=== PATIENT | female | born 1995 | race Caucasian/White ===

== ENCOUNTER 2022-05-04 08:56 | Outpatient (CLI) | payer OTHER, SELFPAY ==
[2022-05-05 15:31] LABS: Strep B DNA Probe NEGATIVE (Negative)
== END 2022-05-04 08:57 | disposition home or self-care (01) ==
LOC: NFLDREF 08:56
PROVIDERS: Visit Provider Advanced Practice Midwife
DX: Z34.93 Encounter for supervision of normal pregnancy, unspecified, third trimester (principal); Z3A.36 36 weeks gestation of pregnancy
CPT/HCPCS: 87081; 87653

== ENCOUNTER 2022-05-25 15:04 | Outpatient (CLI) | payer OTHER, SELFPAY ==
[2022-05-25 15:16] VITALS: BP 120/73; PULSE 76; RESP 16; TEMP 36.8
[2022-05-25 15:17] VITALS: PULSE 85; O2SAT 98
--- NOTE | 2022-05-25 15:52 | PC.OBNST ---
NST Note NST Note Start: 05/25/22 14:37 Freq: ONCE Status: Active Protocol: Document 05/25/22 15:43 CLARKE (Rec: 05/25/22 15:44 CLARKE [id number]) NST Note 1 Para (# of births) 0 EDC 05/28/22 Patient Presented with Complaint(s) of Decreased movement Reactive Yes Appropriate for Gestational Age Yes PARISH Best RN Date 05/25/22 Reactive Yes Appropriate for Gestational Age Yes PARISH Coyne RN Date 05/25/22 OB NST charge Yes Complete NST Note via Write Note Yes The provider's electronic signature indicates the NST is reactive/appropriate for gestational age. *Note to provider: If an addendum is required, open the patient's chart and click on the note under the Nurse/Allied Health tab.
== END 2022-05-25 15:47 | disposition home or self-care (01) ==
LOC: OB OUT 15:04 → OB 15:05
PROVIDERS: Visit Provider Obstetrics & Gynecology
DX: Z34.03 Encounter for supervision of normal first pregnancy, third trimester (principal)
CPT/HCPCS: 59025; 99213

== ENCOUNTER 2022-05-31 06:41 | Outpatient (CLI) | payer OTHER, SELFPAY ==
[2022-05-31 07:02] VITALS: BP 110/73; PULSE 71
[2022-05-31 07:05] VITALS: RESP 16; TEMP 36.6
[2022-05-31 07:06] VITALS: PULSE 73; O2SAT 98
[2022-05-31] MEDS: MORPHINE 10 MG/ML inj IM (10:51)
[2022-05-31] MEDS: hydrOXYzine pamoate 25 MG CAPSULE 100 MG PO (10:52)
--- NOTE | 2022-05-31 11:33 | PC.OBNST ---
NST Note NST Note Start: 05/31/22 11:30 Freq: Status: Active Protocol: Document 05/31/22 11:30 CATHOLIC (Rec: 05/31/22 11:33 CATHOLIC [id number]) NST Note 1 Para (# of births) 0 EDC 05/23/22 Patient Presented with Complaint(s) of Contractions/cramping Reactive Yes Appropriate for Gestational Age Yes PARISH [place] Date 05/31/22 Reactive Yes Appropriate for Gestational Age Yes PARISH Zimmerman Date 05/31/22 OB NST charge Yes Complete NST Note via Write Note Yes The provider's electronic signature indicates the NST is reactive/appropriate for gestational age. *Note to provider: If an addendum is required, open the patient's chart and click on the note under the Nurse/Allied Health tab.
== END 2022-05-31 11:00 | disposition home or self-care (01) ==
LOC: OB CLI 06:41 → OB 06:54
PROVIDERS: Absent Provider Advanced Practice Midwife; Visit Provider Advanced Practice Midwife
DX: O47.1 False labor at or after 37 completed weeks of gestation (principal); Z3A.40 40 weeks gestation of pregnancy
CPT/HCPCS: 59025; 96372; A9270; J2270

== ENCOUNTER 2022-05-31 19:59 | Inpatient (IN) | payer OTHER, SELFPAY ==
[2022-05-31] VITALS (27 sets, daily range): BP systolic 90–140; BP diastolic 50–88; PULSE 64–128; TEMP 36.9–37.1; O2SAT 98–99; BMI 32.3
--- NOTE | 2022-05-31 20:50 | W.PM.LDBA ---
Subjective History of Present Illness Date Seen: 05/31/22 Narrative: Patient is being admitted to Labor and Delivery for active labor. She is a 27 year old at 40.3 weeks gestation. Her full history and physical was dictated by Simi Villalobos on . Please see this for details. Shannan was in to labor and delivery this morning. At that time she was cam but not making a lot of cervical change. She choose to take some Vistaril and go home to try to sleep. She came back this evening and was found to be 6cm at that time. She had cervical changed to 8cm with a feeling of pressure about an hour later. She was admitted at that time and requested and received an epidural. Blood Type: O positive ? GBS: Negative : Duane 1. 1st OB u/s: Anterior subchorionic hemorrhage measuring 1.6 x 0.7 x 0.6 cm; resolved 2. Rubella non-immune.? NEEDS PP vaccination 3. Anatomy scan EFW >97%.? Pt's mother had macrosomic infants, denies any complications OB - H&P: Exam Physical Exam: Vital signs: Pulse BP Pulse Ox 90 124/88 98 05/31/22 19:39 05/31/22 19:39 05/31/22 19:39 Constitutional: Constitutional: no acute distress Routine HEENT Exam: Head: Present normal inspection Routine Respiratory Exam: Respiratory: Present CTA bilaterally Routine Cardiovascular Exam: Cardiovascular: RRR Detailed Labor and Delivery Exam: Patient Gravid: yes Dilation (cm): 8 (per RN exam) Effacement (%): 100 Consistency: soft Tachysystole: No Contraction intensity: Moderate Fetus (Single): Heart Rate Baseline: 150 Monitor Accelerations: Present Monitor Decelerations: Early Roller Painter Variability: Moderate (11-25) (6-25) Routine Extremities Exam: Extremities: Present full ROM Routine Back/Spine/Pelvis Exam: Back/Spine: full ROM Routine Psychiatric Exam: Present normal affect and normal thought process OB - Problem Based A/P Additional Plan (1) : Status: Acute Plan at 40.3 weeks gestation? GBS negative? Uncomplicated ? PLAN:? 1. Candidate for analgesia of choice. Planning epidural.?? 2. Anticipate ? 3. Expectant management at this time.? 4. IV in place 5. Continuous monitoring per unit policy for epidural. Delivery/Labor/Induction Plan Plan: expectant management
[2022-05-31] MEDS: ROPIVACAINE 0.2% 100 ml 100 ML 12 MG EPIDURAL (21:01)
[2022-05-31] MEDS: LIDOCAINE 2% (PF) 5 ML VIAL EPIDURAL (21:04)
[2022-05-31 21:06] LABS: SARS PCR* Negative SARS-CoV-2 (Negative)
--- NOTE | 2022-05-31 21:10 | PM.ANBPRC ---
PFSH PFSH Social History Smoking Status: Never smoker Meds Home Medications and Allergies Home Medications Medication Instructions Recorded Confirmed Type ferrous sulfate 325 mg (65 mg 325 mg PO QDAY 04/06/22 05/31/22 History iron) tablet omega 4-dpb-ycf-fish oil 1,000 mg 1 cap PO QDAY 04/06/22 05/31/22 History (120 mg-180 mg) capsule (Fish Oil) prenat.vits,silvia,beu-tbyn-jqvsa 1 tab PO QDAY 04/06/22 05/31/22 History Allergies Allergy/AdvReac Type Severity Reaction Status Date / Time No Known Allergies Allergy Unverified 05/30/22 09:18 Results Labs Labs: Laboratory Results - last 24 hr 05/31/22 20:10 SARS-CoV-2 (PCR) Negative SARS-CoV-2 Vital Signs Vital Signs: Last Vital Signs Pulse 79 05/31/22 21:09 BP 117/67 05/31/22 21:09 Pulse Ox 99 05/31/22 21:03 Weight: 92.986 kg Height: 182.88 cm Anesthesia Procedures Epidural Insertion Patient Location: OB Start Time: 20:40 Stop Time: 21:40 Start Date: 05/31/22 Stop Date: 05/31/22 Reason for Block: primary anesthetic Patient Position: sitting Performed By: Alejandro Resendez Preanesthetic Checklist: IV checked, risks and benefits discussed, surgical consent, monitors and equipment checked, pre-op evaluation, timeout performed and anesthesia consent Prep: chlorhexidine gluconate Monitoring: blood pressure monitoring, continuous pulse oximetry and heart rate Approach: midline Vertebral Space: lumbar (1-5) Needle Type: Tuohy needle Injection Technique: continuous catheter (continuous catheter) Needle gauge: 17 Needle Length (cm): 10 cm Needle Insertion Depth (cm): 6 Catheter Gauge: 19 Catheter Type: multi-orifice Catheter at skin depth (cm): 12 Test Dose Result: negative and lidocaine 1.5% with epinephrine 1 to 200,000
[2022-05-31 21:23] LABS: Basophils Percent Auto 0.1 % (0.0-3.0); Eosinophils Percent Auto 0.4 % (0.0-7.0); Hematocrit 37.6 % (33.0-51.0); Hemoglobin* 12.7 gm/dL (12.0-16.0); Immature Granulocytes Abs Auto 0.04 K/uL (0.00-0.30); Lymphocytes Percent Auto 11.1 % (20-44); Mean Corpuscular HGB Conc 34 gm/dL (32-36); Mean Corpuscular Hemoglobin 31 pg (26-34); Mean Corpuscular Volume 91 fL (80-100); Neutrophils Percent Auto 83.1 % (42.0-72.0); Platelet Count* 289 K/uL (140-440); RDW Coefficient of Variation % 13.1 % (11.5-15.5); Red Blood Count 4.15 m/uL (4.00-5.20); White Blood Count* 15.98 K/uL (4.50-11.00)
[2022-05-31 21:30] LABS: Slide Review Reflex No
[2022-05-31] MEDS: LACTATED RINGERS 1000 ML 1,000 ML 125 ML IV (22:11)
[2022-06-01] VITALS (37 sets, daily range): BP systolic 106–135; BP diastolic 57–75; PULSE 67–99; RESP 14–16; TEMP 36.4–37.3; O2SAT 96–98
[2022-06-01] MEDS: ONDANSETRON 2 MG/ML inj 4 MG IV (02:21)
[2022-06-01] MEDS: ROPIVACAINE 0.2% 100 ml 100 ML 12 MG EPIDURAL (04:43)
[2022-06-01] MEDS: OXYTOCIN 30 unit/500 ML in NS 30 UNIT/500 ML BAG IVPB (05:40)
--- NOTE | 2022-06-01 06:48 | P.OBPRC_ITS ---
Procedure Delivery date: 06/01/22 Procedure Done: Global Intrapartal Events: Labor Augmentation Delivery augmentation: rupture of membranes and pitocin (very little in the last 15 min of pushing) Delivery monitor: external FHT and external uterine Route of delivery: Episiotomy description: None Laceration description: Perineal - 2nd Degree Delivery repair: Vicryl Estimated blood loss (mL): 150 Anesthesia type: Epidural Disposition: floor Narrative: Patient is a 27 year-old G1 now? P1 admitted on 05/31/22 at 40 Weeks, 3 Days gestation for active labor.? Cervical exam on admission was 6 cm/90 % effaced/-2 station with membranes intact in vertex presentation.? SROM occurred at 0142 with clear fluid.? ? ? Labor Analgesia:? epidural? ? ? Pitocin:? yes, small dose shortly before delivery? ? ? Labor onset:? 1929? ? ? Complete: 0? ? ? Pushing:? 0043, took one 30 minute break in pushing to labor down in the throne position. ? ? heart tones during second stage were: ?Category II. Baseline 140's with moderate variability and accelerations. She has some variable decelerations at the end of pushing ? ? At 0546 a viable? female delivered in vertex LIN presentation over intact perineum via spontaneous vaginal delivery.? Infant was placed on maternal abd omen.? Cord was clamped and cut after a 5+ minute delay.? Nose and mouth were bulb suctioned.? Infant weight pending.? 8 at 1 minute and 9 at 5 minutes.? Shoulder dystocia: no.? Nuchal cord: no.? ? ? Placenta delivered spontaneously and complete at 0618 with a 3 vessel cord.? ? ? Mother and were stable after delivery.? ? ? Lacerations:? 2nd degree, repaired with 3-0 vicryl.? Repair done by Dr. Elaine Augustine. ? ? Blood loss: 150 mL.? Blood loss measurement type: QBL? Sponge and needles counts are correct.? Infant Infant Gender: Female presentation: vertex Placental Delivery Description: Spontaneous Cord Description: 3 Vessels total score - 1 minute: 8 total score - 5 minute: 9 OB Vag Delivery Procedures Additional Procedures Laceration Repair: Yes
[2022-06-01] MEDS: IBUPROFEN 600 MG TABLET PO ×3 (09:06→22:20)
[2022-06-01] MEDS: DOCUSATE SODIUM 100 MG CAPSULE PO (09:06)
[2022-06-01] MEDS: ACETAMINOPHEN 500 MG TABLET 1000 MG PO ×2 (12:03→19:48)
[2022-06-02 01:50] VITALS: BP 115/58; PULSE 78; RESP 16; TEMP 36.4; O2SAT 98
[2022-06-02 04:20] VITALS: BP 119/77; PULSE 78; RESP 16; TEMP 36.5; O2SAT 98
[2022-06-02] MEDS: IBUPROFEN 600 MG TABLET PO ×2 (05:42→14:21)
[2022-06-02 06:57] LABS: Hemoglobin* 10.3 gm/dL (12.0-16.0)
[2022-06-02 08:14] VITALS: BP 134/77; PULSE 67; RESP 20; TEMP 36.4; O2SAT 98
[2022-06-02] MEDS: DOCUSATE SODIUM 100 MG CAPSULE PO (08:28)
[2022-06-02] MEDS: ACETAMINOPHEN 500 MG TABLET 1000 MG PO (08:28)
--- NOTE | 2022-06-02 08:39 | PM.OBDSVD1 ---
DS: Providers Provider Date Seen: 06/02/22 Date of admission: 05/31/22 19:59 Primary care physician: Not a Local Provider Admitting Clinician: Christina Diego CNM Attending Physician on discharge: Christina Diego CNM Date of Discharge: 06/02/22 Exam Const: Vital Signs, click to edit/add: Vital Signs - 24 hr 06/01/22 12:00 06/01/22 16:15 06/01/22 19:55 Temperature 98.9 F 97.6 F 97.7 F Pulse Rate [Blood Pressure Cuff] 78 87 82 Respiratory Rate 16 14 16 Blood Pressure [Ri ght Arm] 106/71 117/75 127/74 Pulse Oximetry 96 96 98 Oxygen Delivery Me thod Room Air Room Air Room Air 06/02/22 01:50 06/02/22 04:20 06/02/22 08:14 Temperature 97.5 F L 97.7 F 97.5 F L Pulse Rate [Blood Pressure Cuff] 78 78 67 Respiratory Rate 16 16 20 Blood Pressure [Ri ght Arm] 115/58 L 119/77 134/77 Pulse Oximetry 98 98 98 Oxygen Delivery Me thod Room Air Room Air Room Air Documenting provider has reviewed patient's vital signs: yes Common normals: no apparent distress, average body habitus, oriented x3, no limitations, healthy appearing, alert and well nourished General appearance: cooperative, comfortable and well kempt HENMT: Common normals: head/scalp atraumatic, hearing grossly normal bilaterally, external ears normal and external nose normal Head and scalp: normal to inspection and atraumatic Face and sinus: normal facial exam Nose: external nose normal External ear: external ears normal Eye: General eye: normal appearance of both eyes Neck & C-Spine: Common normals: full ROM, supple and no JVD General: normal visual inspection and trachea midline Resp: Common normals: normal respiratory effort, no retractions, no use of accessory muscles and clear to auscultation bilaterally Auscultation: clear to auscultation bilaterally Cardio: Common normals: no JVD, regular rate, regular rhythm, S1 normal heart sound, S2 normal heart sound, no gallops, no clicks, no murmurs and no rub Rate: regular rate Rhythm: regular rhythm Heart sounds: S1 normal and S2 normal GI: Common normals: soft to palpation and non-tender Palpation: soft : Uterus: U/2 Lochia: small Extremity: Common normals: full ROM Neuro: Common normals: oriented x3 Sensorium/orientation: alert Psych: Common normals: mental status grossly normal, thought process normal and cooperative Appearance: well kempt Thought process: normal thought process OB - DS: Summary Hospital Course Hospital Course: Day 1:? Vaginal Delivery at 40 and 4/7 weeks.? The patient is a 27 year old G 1 now P 1 that was admitted to the Center on 05/31/22 for active labor. She had an uncomplicated vaginal delivery. She pushed for over 5 hours and had a 2nd degree laceration. She delivered a viable female . She is breast feeding and feels that it is going well. Pain is well controlled with current medications.? She has no new complaints.? Urinary output is adequate and she is voiding without difficulty.? Has a good appetite, is tolerating a general diet, is passing flatus, and has not had a bowel movement.? Has?small amount of rubra lochia.? She is ambulating well.? the patient has done well. Discharge Criteria? Patient has no complaints? No active bleeding?? Doing well? Discharge? Discharge Medication Orders:? No New Medication Orders? Disposition? She is requesting discharge home.? Peripartum Data Infant delivery method: Vaginal Laceration description: Perineal - 2nd Degree Episiotomy description: None complications: none Rhodelia Gender: Female Infant Discharge Plan: Home Status at Discharge Functional status at discharge: independent ambulation Overall status at discharge: patient is progressing back to baseline Time Spent with Patient Time attestation: Total time spent providing and/or coordinating discharge services: Discharge Plan Discharge Disposition: Home, Self-Care Date of Admission: 05/31/22 19:59 Primary Care Provider: Provider,Not a Local Condition: Stable Anticipated Discharge Date/Time: 06/03/22 10:00 Discharge Medications: New docusate sodium 100 mg Capsule 100 mg PO DAILY Qty: 90 0RF ibuprofen 600 mg Tablet 600 mg PO Q6H PRNQty: 60 0RF Continued prenat.vits,silvia,omh-uzzv-exsjx Tablet 1 tab PO QDAY ferrous sulfate 325 mg (65 mg iron) tablet 325 mg PO QDAY omega 9-qhb-gsl-fish oil [Fish Oil] 1,000 mg (120 mg-180 mg) capsule 1 cap PO QDAY Discharge Orders: Discharge Order (Routine); Ordered 06/02/22 Ordered By: Christina Diego Patient Education: Bleeding (DC), Vaginal Delivery (DC) Activity Restrictions/Additional Instructions: Discharge instructions were reviewed with the patient including signs and symptoms of infection and home going medications. Lifting Restrictions: None Nothing vaginally for 6 weeks: no tampons or intercourse. No exercise restrictions. Off Work or School for 6 weeks. Symptoms to report to doctor: -Bleeding that saturates more than one pad per hour ?-Passing clots larger than the size of a golf ball ?-Pain not relieved by prescribed medication ?-Fever above 100.4 degrees Fahrenheit ?-A foul vaginal odor ?-Difficulty in emotions, mood and functions ?-Thoughts of hurting yourself and/or ?-Painful, reddened area in your breast ?-Any drainage, redness or tenderness in your IV/epidural site ?-Severe headache that doesn't improve after taking medications ?-Changes in vision, including temporary loss of vision, blurred vision, and/or light sensitivity ?-Upper abdominal pain (usually under ribs on the right side) ?-Decrease in urination or painful, frequent urinating ?-Chest pain ?-Shortness of breath ?-Tenderness or pain with redness and/swelling in the calf(s) of your leg Optional 2 week visit with a Certified Nurse Fruit Picker Machine Operator: Review contraceptive options, screen for anxiety and depression, review concerns for infant care/feeding. Six week visit for annual physical exam. consultation services are available to all mothers and babies for the first year after delivery.? To make an appointment, please call [phone]. Activity Level: No Restrictions and Activity as Tolerated Discharge Diet: Regular Follow Up Appointments: [facility] [Provider Group] Christina Diego CNM [Certified Nurse Fruit Picker Machine Operator] - Provider,Not a Local [Primary Care Provider] - Forms: bSafe Info Instructions
[2022-06-02] MEDS: MEASLES,MUMPS,RUBELLA VACC/PF 1 DOSE INJ 1 EACH SUBCUT (14:22)
== END 2022-06-02 15:00 | disposition home or self-care (01) | DRG 807 ==
LOC: OB CLI 19:59 → OB 19:59
PROVIDERS: Admitting Provider Advanced Practice Midwife; Visit Provider Advanced Practice Midwife
DX: O70.1 Second degree perineal laceration during delivery (principal); Z37.0 Single live birth; Z3A.40 40 weeks gestation of pregnancy
CPT/HCPCS: 01967; 36415; 85018; 85025; 86850; 86900; 86901; 87635; A9270; J2405; J2795; J7120

== ENCOUNTER 2022-09-07 10:00 | Outpatient (RCR) | payer OTHER, SELFPAY | END 2023-02-05 12:37 | disposition home or self-care (01) | PROVIDERS: Visit Provider Advanced Practice Midwife | DX: N81.89 Other female genital prolapse (principal); R53.1 Weakness; R27.8 Other lack of coordination; R26.89 Other abnormalities of gait and mobility; Z51.89 Encounter for other specified aftercare | CPT/HCPCS: 97110; 97140; 97161; 97535 ==

== ENCOUNTER 2022-11-02 10:47 | Outpatient (CLI) | payer OTHER, SELFPAY | END 2022-11-02 10:48 | disposition home or self-care (01) | LOC: LKVREF 10:51 | PROVIDERS: Visit Provider Advanced Practice Midwife | DX: O20.9 Hemorrhage in early pregnancy, unspecified (principal) | CPT/HCPCS: 84702 ==

== ENCOUNTER 2022-11-05 08:15 | Outpatient (CLI) | payer OTHER, SELFPAY | END 2022-11-05 08:16 | disposition home or self-care (01) | LOC: LKVREF 16:20 | PROVIDERS: Visit Provider Advanced Practice Midwife | DX: O26.851 Spotting complicating pregnancy, first trimester (principal) | CPT/HCPCS: 84702 ==

== ENCOUNTER 2022-11-22 12:45 | Outpatient (CLI) | payer OTHER, SELFPAY ==
--- NOTE | 2022-11-22 13:00 | CRLHL7_ITS ---
For Patients: As a result of the Cures Act, medical imaging exams and procedure reports are released immediately into your electronic medical record. You may view this report before your referring provider. If you have questions, please contact your health care provider. INDICATION: First trimester scan, establish dates. COMPARISON: None. TECHNIQUE: Real-time guzman-scale imaging of the pelvis was performed. FINDINGS: Sonographic imaging demonstrates a single living intrauterine gestation. The embryo demonstrates a regular cardiac rate measuring 174 beats per minute. The embryo`s crown-rump length measurement of 2.2 cm corresponds to a gestational age of 9 weeks 0 days with a sonographic due date of 06/27/2023. There is a normal-appearing yolk sac. There are no gross abnormalities noted within the embryo at this early state of development. The gestational sac has a normal appearance. There is a left fundal perigestational hemorrhage measuring 2.2 x 0.6 x 0.7 cm. The amount of fluid within the sac appears appropriate for gestational age. The cervix is closed. The myometrium appears normal. The ovaries are of normal size. Corpus luteal cyst right ovary. There are no suspicious fluid collections noted in the cul-de-sac. IMPRESSION: Single living intrauterine with sonographic gestational age 9 weeks 0 days and sonographic due date of 06/27/2023. Left fundal subchorionic hemorrhage measuring 2.2 x 0.6 x 0.7 cm. Dictated by Alejandro Murillo MD @ 11/22/2022 2:39:09 PM (Electronically Signed)
== END 2022-11-22 12:46 | disposition home or self-care (01) ==
LOC: US 12:45
PROVIDERS: PCP Advanced Practice Midwife; Visit Provider Advanced Practice Midwife
DX: Z34.91 Encounter for supervision of normal pregnancy, unspecified, first trimester (principal); Z3A.09 9 weeks gestation of pregnancy
CPT/HCPCS: 76817; 86592; 86703; 86762; 86787; 86803; 86850; 86900; 86901; 87086; 87340

== ENCOUNTER 2022-11-22 14:29 | Outpatient (CLI) | payer OTHER, SELFPAY ==
[2022-11-22 18:01] LABS: Hepatitis B Surface Antigen* Negative (Negative)
[2022-11-22 18:19] LABS: Hepatitis C Virus Antibody* Negative (Negative)
[2022-11-22 18:22] LABS: HIV 1/2/P24 Combo Screen* Negative (Negative)
[2022-11-24 23:20] LABS: Rubella Antibody IgG 13.2 IU/mL
[2022-11-25 01:21] LABS: Rapid Plasma Reagin (RPR) Non Reactive (Non Reactive)
== END 2022-11-22 14:30 | disposition home or self-care (01) ==
PROVIDERS: PCP Advanced Practice Midwife; Visit Provider Physician Assistant
DX: Z34.91 Encounter for supervision of normal pregnancy, unspecified, first trimester (principal); Z3A.09 9 weeks gestation of pregnancy
CPT/HCPCS: 86592; 86703; 86762; 86787; 86803; 86850; 86900; 86901; 87086; 87340; 87491; 87591

== ENCOUNTER 2023-02-07 08:05 | Outpatient (CLI) | payer OTHER, SELFPAY ==
--- NOTE | 2023-02-07 08:15 | CRLHL7_ITS ---
For Patients: As a result of the Century Cures Act, medical imaging exams and procedure reports are released immediately into your electronic medical record. You may view this report before your referring provider. If you have questions, please contact your health care provider. INDICATION: Evaluate anatomy. COMPARISON: 11/22/2022 TECHNIQUE: Real time guzman scale imaging of the fetus was performed as well as color Doppler analysis of the umbilical vessels. FINDINGS: Sonographic imaging demonstrates a single living intrauterine gestation. Fetus demonstrates a regular cardiac rate of 161 beats per minute. Fetus has a vertex position. The placenta lies anteriorly without evidence of placenta previa. The edge of the placenta is located 8.7 cm from the internal cervical os. Amniotic fluid volume appears normal. Single deepest vertical pocket: 4.5 cm. The cervix is closed and measures 3.6 cm in length. The composite ultrasound gestational age is calculated at 20 weeks 4 days with an estimated sonographic due date of 06/23/2023. The estimated weight is 376 grams which lies at the 86th %. The following biometric measurements were obtained: Biparietal diameter: 4.7 cm/20 weeks 2 days 61st% Head circumference: 17.5 cm/20 weeks 0 days 42nd% Abdominal circumference: 16.2 cm/21 weeks 2 days 83rd% Femur length: 3.3 cm/20 weeks 3 days 57th% The HC/AC ratio measures: 1.08 range (1.07-1.25) On anatomic survey, there is a normal appearance of the cerebral ventricles, cavum septi pellucidi, cisterna magna and cerebellum. The nose, lips, and facial profile are not well-visualized due to position. The cervical, thoracic and lumbar spine are well visualized and appear normal. There is a normal four-chamber heart view and the left and right ventricular outflow tracts appear normal. The diaphragm and stomach appear normal. The kidneys and bladder also appear normal. There is a normal three-vessel cord and cord insertion site. The four extremities appear normal. IMPRESSION: Concordance of clinical and sonographic dating. Incomplete visualization of the face, profile and nose/lips due to position. Remainder of the anatomic survey is normal. Short-term follow-up recommended. Dictated by Alejandro Murillo MD @ 02/07/2023 11:13:01 AM (Electronically Signed)
== END 2023-02-07 08:06 | disposition home or self-care (01) ==
LOC: US 08:07
PROVIDERS: PCP Advanced Practice Midwife; Visit Provider Advanced Practice Midwife
DX: Z34.92 Encounter for supervision of normal pregnancy, unspecified, second trimester (principal); Z3A.20 20 weeks gestation of pregnancy
CPT/HCPCS: 76805

== ENCOUNTER 2023-04-04 08:38 | Outpatient (CLI) | payer OTHER, SELFPAY | END 2023-04-04 08:39 | disposition home or self-care (01) | LOC: NFLDREF 04-05 17:34 | PROVIDERS: Visit Provider Advanced Practice Midwife | DX: Z34.90 Encounter for supervision of normal pregnancy, unspecified, unspecified trimester (principal) | CPT/HCPCS: 86592 ==

== ENCOUNTER 2023-05-30 09:23 | Outpatient (CLI) | payer OTHER, SELFPAY ==
[2023-05-31 08:10] LABS: Strep B DNA Probe NEGATIVE (Negative)
[2023-05-31 08:47] LABS: Strep B Pen/Amox Allergy No
== END 2023-05-30 09:24 | disposition home or self-care (01) ==
LOC: NFLDREF 09:23
PROVIDERS: Visit Provider Advanced Practice Midwife
DX: Z34.93 Encounter for supervision of normal pregnancy, unspecified, third trimester (principal)
CPT/HCPCS: 87081; 87653

== ENCOUNTER 2023-07-04 06:58 | Inpatient (IN) | payer OTHER, SELFPAY ==
[2023-07-04] VITALS (43 sets, daily range): BP systolic 91–155; BP diastolic 50–75; PULSE 76–223; TEMP 36.6–37.5; O2SAT 98–100; BMI 30.8
--- NOTE | 2023-07-04 07:53 | P.LDBA_ITS ---
Subjective History of Present Illness Narrative: Patient is being admitted to Labor and Delivery for post dates induction of labor. She is a 28 year old at 41.0 weeks gestation. Her full history and physical was done 06/06/23 by Margaret Machado CNM. Please see this for details. Specific Issues/Plans H&P done 06/06/23 by Margaret Machado CNM 1. Short interval , last delivery 06/01/2022 2. Acne. Was on cephalexin, metronidazole and Azelaic acid at [facility] Was recommended she discontinue in first trimester, desires to restart them. Technically all safe in . May try to limit oral antibiotics if able. Pap due Covid-declines 11/22/22 Flu-declines 11/22/22 Tdap: 05/02/23 OB - Problem Based A/P Additional Plan (1) Post-dates : Status: Acute Plan Assessment:?? at 41.0 weeks gestation?? GBS negative?? Labor type: Induced, Early labor? Category 1 FHR pattern.? complicated by: short interval spacing Plan:?? * ?Admit to L & D? * IV access: none * Monitoring per policy: intermittent? * Candidate for analgesia of choice.? Planning epidura for pain management * AROM for induction * Patient encouraged to reposition and ambulate to promote physiologic labor and . * Anticipate ? Delivery/Labor/Induction Plan Plan: induction Induction method: AROM OB Exam Physical Exam Vital signs: Temp Pulse BP Pulse Ox 98.2 F 117 H 120/75 98 07/04/23 07:31 07/04/23 07:31 07/04/23 07:31 07/04/23 07:31 Narrative: Vitals Reviewed Constitutional:? Alert and oriented x3 HEENT:? Normocephalic, atraumatic Neck:? Supple Lungs:? Clear to auscultation bilaterally Heart:? Regular rate and rhythm, no murmur, rub or gallop Abdomen:? Soft, nontender, and gravid. Vertex by Devang's, confirmed with cervical exam. Extremities:? No edema or erythema Detailed Labor and Delivery Exam Patient Gravid: Yes Dilation (cm): 3 Effacement (%): 80 Cervix position: posterior Consistency: soft Contraction Frequency: rare Tachysystole: No Contraction intensity: Mild Fetus (Single) Station: +1 Amniotic Membrane Status: AROM Amniotic Membrane Fluid Description: Clear Heart Rate Baseline: 150 Monitor Accelerations: Present Monitor Decelerations: None Microstrategy Architect Variability: Moderate (6-25)
[2023-07-04] MEDS: LACTATED RINGERS 1000 ML 1,000 ML 125 ML IV (11:23)
[2023-07-04] MEDS: OXYTOCIN 30 unit/500 ML in NS 30 UNIT/500 ML BAG IVPB (11:24)
[2023-07-04 11:27] LABS: Basophils Percent Auto 0.2 % (0.0-3.0); Eosinophils Percent Auto 0.3 % (0.0-7.0); Hematocrit 39.1 % (33.0-51.0); Immature Granulocytes Pct Auto 0.9 %; Lymphocytes Percent Auto 8.8 % (20-44); Mean Corpuscular HGB Conc 33 gm/dL (32-36); Mean Corpuscular Hemoglobin 29 pg (26-34); Mean Corpuscular Volume 88 fL (80-100); Monocytes Percent Auto 5.6 % (0.0-11.0); Neutrophils Percent Auto 84.2 % (42.0-72.0); Platelet Count* 399 K/uL (140-440); RDW Coefficient of Variation % 12.6 % (11.5-15.5); Red Blood Count 4.44 m/uL (4.00-5.20); White Blood Count* 11.76 K/uL (4.50-11.00)
[2023-07-04 11:41] LABS: Slide Review Reflex No
[2023-07-04] MEDS: ROPIVACAINE 0.2% 100 ml 100 ML 12 MG EPIDURAL (14:46)
[2023-07-04] MEDS: LACTATED RINGERS 1000 ML 1,000 ML 900 ML IV ×2 (14:54→16:02)
--- NOTE | 2023-07-04 15:19 | P.ANBPRC_ITS ---
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 . 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 What is your current living situation?: I presently have a place to live Problems where you live: no known problems In the past 12 months, utilities in danger of being shut off: no In past 12 months, lack of transportation kept you from medical appts, meetings, work, or getting things needed for daily living: no In the past 12 mos, have been you worried that your food would run out before you had money to buy more?: never true In the past 12 mos, the food you bought just didn't last and you didn't have money to buy more?: never true Smoking Status: Never smoker How often does anyone, including family, friends and others, physically hurt you : never How often does anyone, including family, friends and others, insult or talk down to you: never How often does anyone, including family, friends and others, threaten you with harm: never How often does anyone, including family, friends and others, scream or curse at you: never Meds Home Medications and Allergies Home Medications Medication Instructions Recorded Confirmed Type omega 0-izb-kbe-fish oil 1,000 mg 1 cap PO QDAY 04/06/22 07/04/23 History (120 mg-180 mg) capsule (Fish Oil) prenat.vits,silvia,lai-wqqj-lnokq 1 tab PO QDAY 04/06/22 07/04/23 History Lactobacillus rhamnosus GG 10 1 cap PO QDAY 02/07/23 07/04/23 History billion cell capsule (Culturelle) sulfacetamide sodium (acne) 10 % 1 applic topical ONCE 02/21/23 07/04/23 History lotion (suspension) ivermectin 1 % topical cream 1 applic topical QDAY 04/04/23 07/04/23 History (Soolantra) Allergies Allergy/AdvReac Type Severity Reaction Status Date / Time No Known Allergies Allergy Verified 07/01/23 11:11 Results Labs Labs: Laboratory Results - last 24 hr 07/04/23 11:18 WBC 11.76 H RBC 4.44 Hgb 13.0 Hct 39.1 MCV 88 MCH 29 MCHC 33 RDW Coeff of Amilcar 12.6 Plt Count 399 Neut % (Auto) 84.2 H Lymph % (Auto) 8.8 L Jenkins % (Auto) 5.6 Eos % (Auto) 0.3 Baso % (Auto) 0.2 Neut # (Auto) 9.90 H Lymph # (Auto) 1.00 Jenkins # (Auto) 0.70 Eos # (Auto) 0.00 Baso # (Auto) 0.00 Abs Immat Gran (auto) 0.10 Imm/Tot Granulo (auto) 0.9 Blood Type O Positive Antibody Screen NEGATIVE Vital Signs Vital Signs: Last Vital Signs Temp 98.6 F 07/04/23 13:31 Pulse 86 07/04/23 15:17 BP 110/68 07/04/23 15:17 Pulse Ox 100 07/04/23 14:45 Weight: 100.272 kg Height: 180.34 cm Anesthesia Procedures Epidural Insertion Patient Location: OB Start Time: 14:30 Stop Time: 15:20 Start Date: 07/04/23 Stop Date: 07/04/23 Reason for Block: procedure for pain Patient Position: sitting Performed By: Emily Ritter Preanesthetic Checklist: IV checked, risks and benefits discussed, monitors and equipment checked, timeout performed and anesthesia consent Prep: chlorhexidine gluconate Monitoring: blood pressure monitoring, continuous pulse oximetry and heart rate Approach: midline Vertebral Space: lumbar (1-5) Epidural Technique: [place] saline Needle Type: Tuohy needle Injection Technique: continuous catheter Needle gauge: 17 Needle Length (cm): 10 cm Needle Insertion Depth (cm): 7 Catheter Gauge: 19 Catheter Type: multi-orifice Catheter at skin depth (cm): 13 Test Dose Result: negative and lidocaine 1.5% with epinephrine 1 to 200,000
--- NOTE | 2023-07-04 16:47 | PM.OBPNL ---
Subjective Date Seen: 07/04/23 Narrative: ?Shannan is coping well with labor pain/contractions with epidural in place. She is requesting her epidural be turned down so she can feel more. ?Duane is with her for support. ?She would like to continue with her epidural for comfort and pain management.? Objective Exam: VSS, afebrile General Appearance:? Calm, cooperative. ?No acute distress. ? Psychiatric Exam: Alert and oriented, appropriate affect Abdomen: Gravid Membranes: ?AROM X 8.5 hours Vital Signs: Last Vital Signs Temp 98.2 F 07/04/23 16:03 Pulse 96 07/04/23 16:43 BP 109/68 07/04/23 16:43 Pulse Ox 100 07/04/23 14:45 Pelvic Exam Dilation (cm): 5 Effacement (%): 90 Station: 0 Comments: per RN Contractions Monitor mode: External Contraction pattern: Regular Contraction intensity: Moderate Pitocin Rate (mU/min): 1 Assessment Assessment: induction ongoing Station: +1 Amniotic Membrane Status: AROM Heart Rate Baseline: 145 Residential Variability: Moderate (6-25) Monitor Accelerations: Present Monitor Decelerations: None Plan Plan: Assessment:?? at 41.0 gestation?? GBS negative Patient is coping well with challenges of labor.?? Labor type: Induced, Active labor? Plan:?? consult anesthesia to decrease epidural dose per pt request Continue with routine intrapartum cares as ordered.?? Patient encouraged to move and change positions to promote physiologic labor and .?? Nonpharmacologic comfort measures per patient preference. Anticipate progress to NVD. ?
--- NOTE | 2023-07-04 18:54 | W.PM.OBVAGDE ---
OB Procedure Vag Delivery Mother Details Mother Details: The patient is a 28 year-old, 2, Para 1, admitted on 07/04/23 at 41Days gestation. Additional Details Amniotic Membrane Status: AROM Amniotic Membrane Rupture Date: 07/04/23 Amniotic Membrane Rupture Time: 07:50 Heart: heart tones during second stage were [] Delivery Details Delivery Date: 07/04/23 Delivery Time: 17:49 Gender: Male Viability: Alive; Heart Rate Present Position at Delivery: OA Delivery Details: Delivered over [intact perineum] via [spontaneous] vaginal delivery. was placed on maternal abdomen.? Cord was clamped and cut after a 30-60 second delay. Nose and mouth were bulb suctioned.? weight pending. Additional Details Shoulder Dystocia: No Placenta Delivery Time: 18:01 Placental Delivery Description: Spontaneous Bakri Used: No Sponge/Need Count Correct: Yes Event Summary Status: Mother and were stable after delivery.
--- NOTE | 2023-07-04 18:55 | W.PM.OBVAGDE ---
Documented by User: Srinivasan Machado CNM 07/04/23 19:11 OB Procedure Vag Delivery Mother Details Mother Details: The patient is a 28 year-old, 2, Para 1, admitted on 07/04/23 at 41 Days gestation. Patient was admitted for induction for post dates and progressed normally/with AROM and IV Pitocin. AROM noted at 0750 with clear fluid. Patient was complete at 1728 and pushing at 1736. of a viable male at 1749 in left tilt position. Vertex delivered OA. There was No nuchal cord and no shoulder. Body delivered easily and without incident. Infant passed to mothers abdomen with a vigorous cry. Cord was clamped and cut at > 5 minutes. APGARS were 8 at one minute and 9 at five minutes respectively. Mouth was bulb suctioned. Intact placenta with a 3 vessel cord delivered spontaneously at 1801. Fundus firm. Shallow 2nd degree identified and repaired in typical fashion. QBL 50 cc. Mother and baby stable; mother plans to breastfeed. Infant weight pending. : 2 Para: 2 Weeks Gestation: 41.0 Admission Date: 07/04/23 Additional Details Amniotic Membrane Status: AROM Amniotic Membrane Rupture Date: 07/04/23 Amniotic Membrane Rupture Time: 07:50 Amniotic Membrane Fluid Description: Clear Analgesia/Anesthesia Type: Epidural Waterbirth: No Pitcoin: Yes Intrapartal Events: Labor Induction Induction Method: per pitocin protocol and AROM Complete: 17:28 Pushin:36 Heart: heart tones during second stage were 145, moderate variability, once decel noted with pushing resolved with deep breathing, then delivered with next contraction. Delivery Details Delivery Date: 07/04/23 Delivery Time: 17:49 Infant Gender: Male Infant Viability: Alive; Heart Rate Present Position at Delivery: OA Delivery Details: Delivered over intact perineum via spontaneous vaginal delivery. was placed on maternal abdomen.? Cord was clamped and cut after a >5 minute delay. Nose and mouth were bulb suctioned.? weight pending. 1 Minute Interval Total Score: 8 5 Minute Interval Total Score: 9 Additional Details Shoulder Dystocia: No Placenta Delivery Time: 18:01 Placental Delivery Description: Spontaneous Delivery repair: Vicryl Procedure Done: Global Blood Loss: 50 Laceration: Perineal - 2nd Degree Blood Loss Measurement Type: QBL Bakri Used: No Sponge/Need Count Correct: Yes Cord Vessel Description: 3 Vessels Event Summary Status: Mother and infant were stable after delivery. Disposition: floor Documented by User: Maria L Ingram CNM 07/04/23 19:16 OB Procedure Vag Delivery Mother Details Mother Details: The patient is a 28 year-old, 2, Para 1, admitted on 07/04/23 at 41 Days gestation. Additional Details Labor Onset: 13:00 Delivery Details Route of delivery: Delivery Details: Patient was admitted for induction for post dates and progressed normally/with AROM and IV Pitocin. AROM noted at 0750 with clear fluid. Patient was complete at 1728 and pushing at 1736. of a viable male at 1749 in left tilt position. Vertex delivered OA. There was No nuchal cord and no shoulder. Body delivered easily and without incident. passed to mothers abdomen with a vigorous cry. Cord was clamped and cut at > 5 minutes. APGARS were 8 at one minute and 9 at five minutes respectively. Mouth was bulb suctioned. Intact placenta with a 3 vessel cord delivered spontaneously at 1801. Fundus firm. Shallow 2nd degree identified and repaired in typical fashion. QBL 50 cc. Mother and baby stable; mother plans to breastfeed. Infant weight pending.
[2023-07-04] MEDS: IBUPROFEN 600 MG TABLET PO (19:27)
[2023-07-04] MEDS: ACETAMINOPHEN 500 MG TABLET 1000 MG PO (22:44)
[2023-07-05 02:04] VITALS: BP 137/79; PULSE 96; RESP 18; TEMP 36.5; O2SAT 99
[2023-07-05] MEDS: IBUPROFEN 600 MG TABLET PO ×3 (02:41→17:31)
[2023-07-05 05:04] VITALS: BP 117/76; PULSE 91; RESP 18; TEMP 36.5; O2SAT 99
[2023-07-05 07:50] VITALS: BP 125/54; PULSE 82; RESP 18; TEMP 36.4; O2SAT 97
[2023-07-05] MEDS: ACETAMINOPHEN 500 MG TABLET 1000 MG PO ×2 (07:56→21:14)
[2023-07-05] MEDS: DOCUSATE SODIUM 100 MG CAPSULE PO (07:57)
--- NOTE | 2023-07-05 08:00 | PM.OBPNVD1 ---
OB - PN:Subj Subjective Time Seen by Provider: 08:01 Date Seen: 07/05/23 Interval history: Shannan is a 28 y.o. who was admitted to [facility] for IOL for postdates.? She had an uncomplicated NVD.? ? ? Narrative: The patient feels well.? The pain is well controlled with current medications.? She has no new complaints.? She is breast feeding and reports things are going well.? the patient has done well.? Vitals have been stable.? She has remained afebrile.? Has a good appetite, is tolerating a general diet.? She is voiding without difficulty.? She is passing gas and has not had a bowel movement.? She is ambulating and denies any dizziness.? Has Small amount of rubra lochia.? OB - PN: Obj Exam Physical Exam: Vital signs: Temp Pulse Resp BP Pulse Ox O2 Del Method 97.7 F 91 18 117/76 99 Room Air 07/05/23 05:04 07/05/23 05:04 07/05/23 05:04 07/05/23 05:04 07/05/23 05:04 07/05/23 05:04 Narrative: GENERAL APPEARANCE:? normal affect, alert, no distress? MOOD:? appropriate? HEENT: normocephalic, neck supple, full ROM? CHEST:? Symmetrical chest wall movement.? Normal respiratory effort.? Clear to auscultation ? HEART:? regular rate and rhythm? ABDOMEN:? soft, non-tender. Uterine fundus is firm, at Umbilicus, Midline and is appropriate for the stage of recovery.? Bowel sounds present.? PERINEUM:? mild edema of the perineum, there is a 2nd degree laceration that is healing well.? EXTREMITIES:? normal and trace edema? OB - PN: Obj Data Labs Labs: Laboratory Results - last 24 hr 07/04/23 11:18 WBC 11.76 H RBC 4.44 Hgb 13.0 Hct 39.1 MCV 88 MCH 29 MCHC 33 RDW Coeff of Amilcar 12.6 Plt Count 399 Neut % (Auto) 84.2 H Lymph % (Auto) 8.8 L Dixon % (Auto) 5.6 Eos % (Auto) 0.3 Baso % (Auto) 0.2 Neut # (Auto) 9.90 H Lymph # (Auto) 1.00 Dixon # (Auto) 0.70 Eos # (Auto) 0.00 Baso # (Auto) 0.00 Abs Immat Gran (auto) 0.10 Imm/Tot Granulo (auto) 0.9 Blood Type O Positive Antibody Screen NEGATIVE OB - PN: A/P Delivery Assessment and Plan (1) (normal spontaneous vaginal delivery): Status: Acute (2) Second degree laceration of perineum, delivered, current hospitalization: Status: Acute (3) Lactating mother: Status: Acute Plan Plan: routine care Comments: G 2 P 2 status post uncomplicated NVD? ?? 1.? Continue route PP cares? 2.? .? May see if desired? 3.? Anticipate discharge home tomorrow?
[2023-07-05 11:25] VITALS: BP 104/69; PULSE 80; RESP 18; TEMP 36.5; O2SAT 97
[2023-07-05 17:21] VITALS: BP 111/71; PULSE 82; RESP 16; TEMP 36.6
[2023-07-05 19:38] VITALS: BP 120/72; PULSE 77; RESP 16; TEMP 36.3; O2SAT 97
[2023-07-06 05:00] VITALS: BP 124/85; PULSE 74; RESP 15; TEMP 36.3
[2023-07-06] MEDS: IBUPROFEN 600 MG TABLET PO (05:38)
[2023-07-06] MEDS: BENZOCAINE/MENTHOL SPRAY 85 GM AEROSOL 1 APPLIC TOPICAL (05:45)
[2023-07-06 07:55] VITALS: BP 126/83; PULSE 73; RESP 16; TEMP 36.6; O2SAT 97
--- NOTE | 2023-07-06 09:24 | PM.OBDSVD1 ---
DS: Providers Provider Date Seen: 07/06/23 Date of admission: 07/04/23 06:58 Primary care physician: Not a Local Provider Admitting Clinician: Kristina Esqueda MD Attending Physician on discharge: Maria L Ingram CNM Date of Discharge: 07/06/23 DS: Diagnosis Discharge Diagnosis (1) Second degree laceration of perineum, delivered, current hospitalization: Status: Acute (2) (normal spontaneous vaginal delivery): Status: Acute (3) Lactating mother: Status: Acute (4) care following vaginal delivery: Status: Acute Exam Narrative: Exam Narrative: GENERAL APPEARANCE:? normal affect, alert, no distress? MOOD:? appropriate? CHEST:? clear to auscultation and percussion? HEART:? regular rate and rhythm? ABDOMEN:? soft, non-tender the uterine fundus is 2 cm Below Umbilicus, Midline and is appropriate for the stage of recovery. ? PERINEUM:? mild edema of the perineum, there is a 2nd degree that is healing well.? EXTREMITIES:? normal and no edema? Patient has no complaints? No active bleeding?? Doing well? She is requesting discharge home.? Const: Vital Signs, click to edit/add: Vital Signs - 24 hr 07/05/23 11:25 07/05/23 17:21 07/05/23 19:38 Temperature 97.7 F 97.9 F 97.4 F L Pulse Rate [Blood Pressure Cuff] 80 82 77 Respiratory Rate 18 16 16 Blood Pressure [Le ft Arm] 104/69 111/71 120/72 Pulse Oximetry 97 97 Oxygen Delivery Me thod Room Air Room Air Room Air 07/06/23 05:00 07/06/23 07:55 Temperature 97.4 F L 97.9 F Pulse Rate [Blood Pressure Cuff] 74 73 Respiratory Rate 15 16 Blood Pressure [Le ft Arm] 124/85 126/83 Pulse Oximetry 97 Oxygen Delivery Me thod Room Air Documenting provider has reviewed patient's vital signs: yes OB - DS: Summary Hospital Course Hospital Course: Patient is a 28year old, G 2 now P 2? admitted on 07/04/23 at 41 Weeks, 0 Days gestation for IOL.? She had an uncomplicated vaginal delivery.? She delivered a viable male infant.? She is breast feeding and reports things are well.?She working on getting baby to latch deeper. the patient has done well.? Her pain is well controlled with current medications.? She has no new complaints.? Vitals have been stable. She has remained afebrile. She is voiding without difficulty. She is passing gas and has not had a bowel movement. She is ambulating and denies any dizziness. She is planning mini pill for control. She declines stool softener prescription as she already has some at home. Peripartum Data Infant delivery method: Vaginal Laceration description: Perineal - 2nd Degree Episiotomy description: None complications: none [place] Infant Gender: Male Infant Discharge Plan: Home Status at Discharge Functional status at discharge: independent ambulation Overall status at discharge: patient is progressing back to baseline Time Spent with Patient Time attestation: Total time spent providing and/or coordinating discharge services: Discharge Plan Discharge Disposition: Home, Self-Care Date of Admission: 07/04/23 06:58 Attending Provider on Discharge: Christina Diego Primary Care Provider: Provider,Not a Local Condition: Stable Anticipated Discharge Date/Time: 07/06/23 10:00 Discharge Medications: New ibuprofen 600 mg Tablet 600 mg PO Q6H PRNQty: 30 0RF Continued prenat.vits,silvia,[id number] Tablet 1 tab PO QDAY omega 6-ggq-ptg-fish oil [Fish Oil] 1,000 mg (120 mg-180 mg) capsule 1 cap PO QDAY ivermectin [Soolantra] 1 % cream 1 applic topical QDAY Culturelle 10 billion cell capsule 1 cap PO QDAY sulfacetamide sodium (acne) 10 % suspension 1 applic topical ONCE Discharge Orders: Discharge Order (Routine); Ordered 07/06/23 Ordered By: Christina Diego Patient Education: OB Vaginal/Breast Feeding Additional Instructions: Discharge instructions were reviewed with the patient including signs and symptoms of infection and home going medications.? Lifting Restrictions: 20 pounds for 6? weeks? ?? Do not drive while taking narcotic pain meds.? Off Work or School for 6 weeks.? ?? Symptoms to report to doctor:? -Bleeding that saturates more than one pad per hour? -Passing clots larger than the size of a golf ball? -Pain not relieved by prescribed medication? -Fever above 100.4 degrees Fahrenheit? -A foul vaginal odor? -Difficulty in emotions, mood and functions? -Thoughts of hurting yourself and/or ? -Painful, reddened area in your breast? -Any drainage, redness or tenderness in your IV/epidural site? -Severe headache that doesn't improve after taking medications? -Changes in vision, including temporary loss of vision, blurred vision, and/or light sensitivity? -Upper abdominal pain (usually under ribs on the right side)? -Decrease in urination or painful, frequent urinating? -Chest pain? -Shortness of breath? -Tenderness or pain with redness and/swelling in the calf(s) of your leg? ?? Follow Up in clinic in 2 and 6 weeks.? ?? consultation services are available to all mothers and babies for the first year after delivery.? To make an appointment, please call [phone].? Activity Level: Activity as Tolerated Discharge Diet: Regular Follow Up Appointments: Provider,Not a Local [Primary Care Provider] - [facility] [Provider Group] Forms: MyHealth Info Instructions
[2023-07-06] MEDS: DOCUSATE SODIUM 100 MG CAPSULE PO (10:58)
[2023-07-06] MEDS: ACETAMINOPHEN 500 MG TABLET 1000 MG PO (10:58)
== END 2023-07-06 11:37 | disposition home or self-care (01) | DRG 807 ==
PROVIDERS: Admitting Provider Advanced Practice Midwife; Visit Provider Advanced Practice Midwife
DX: O48.0 Post-term pregnancy (principal); Z37.0 Single live birth; O70.1 Second degree perineal laceration during delivery; Z3A.41 41 weeks gestation of pregnancy
CPT/HCPCS: 01967; 36415; 85025; 86850; 86900; 86901; A9270; J2371; J2795; J7120; S0020

== ENCOUNTER 2023-07-10 13:49 | Outpatient (CLI) | payer OTHER, SELFPAY ==
--- NOTE | 2023-07-10 17:00 | W.PM.LAC.MC ---
Consult Note - Mom Date of Visit Date of visit: 07/10/23 mental health consultant: Trudi Mercedes Visit Code: Visit Patient's Information Phone number: [phone] : 2 Para: 2 Allergies No Known Allergies Allergy (Verified 07/16/23 08:24) Mother's Medical History: Medical History Delivery Information Delivery type: Vaginal Weeks Gestation: 41.0 Gestational Age: AGA Weight: 4.154 kg Discharge Weight: 4.274 kg Baby's Information Baby's Age at Visit: 6 days Baby's Provider or Clinic: Balaji Garcia NP Jaundice: No Reason for Consult Reason for Consult: review of latch, possible tongue tie Past Experience Past Experience: No (exclusively pumped with older chile) Current Frequency of Day Feedings: every 1.5 - 3 hours around the clock Both Breasts: Yes (mom offers) Suck: strong Latch: wide Length of Time: 5 - 15 minutes Pumping Pumping: No Supplementing EMB Supplement: No Formula Supplement: No Baby Elimination Number of Wet Diapers a Day: with every feeding Number of BM a Day: with almost every feeding, yellow and seedy Breast/Nipple Condition Breast Information: WNL Engorgement: No Maternal Nipple Condition - Left: Common Nipple and Short Maternal Nipple Condition - Right: Common Nipple and Short Sore Nipples: Yes Onsite Pre-Feed weight: 4.154 kg Post-Feed weight: 4.274 kg Milk Transferred (mL): 120 Assessments/Interventions Assessments/Interventions: Met with mom and this now 6 day old ex- late term AGA baby for consult. Mom is concerned for a tongue and lip tie and reports nursing is uncomfortable b/c baby won't open his mouth wide to get a deep latch. She reports baby just came from the chiropractor and that provider thought baby had both a lip and tongue tie. Mom is nursing every 1.5 - 3 hours and states feedings can last from 5 - 15 minutes total. She tries to offer both sides, but reports baby is usually too sleepy to take the second side. She hasn't started pumping or offered a bottle yet. Breasts WNL- symmetrical with rounded lower quadrants, intramammary distance < 1.5 inches. Nipples are a little short but everted and don't flatten or retract on compression. Per mom her nipples were damaged, no damage noted today. Baby has gained 77 grams/day since his last visit on 07/08 and is already at BW at 6 DOL. POC deny any caput/cephalohematoma at delivery and state baby has equal ROM when turning his head and moving his extremities. States the chiropractor felt he was tight in the neck and low back. Baby's palate is WNL. His upper lip is easy to flange and there's no blanching of the gums but he does have a suck blister to the upper lip. He has a strong suck on a finger. The tongue extends past the gum line, but there's canoeing when lateralizing. The lower frenulum wasn't visualized, posterior? Mom latched baby to the right side with only one attempt and he had a wide latch, mom was comfortable. She reported feeling a pulling sensation and rated her discomfort a 2/10. Baby nursed about 15 minutes needing some stimulation to stay awake. She offered the left side and although this side was a little more uncomfortable initially, after about 10 seconds and adjusting his lower jaw mom was comfortable. Baby nursed about 10 minutes and when weighed had transferred 120 ml! Suspect baby was more relaxed after visiting the chiropractor and this helped him in opening wider and getting a better latch. Plan: 1. Continue nursing ALD, but not to go past 4 hours for now. Suggested she work a little harder at waking him between sides so he takes the second side more regularly. This will help her supply and will probably give her a longer break between nursing sessions. Reviewed a few ideas for massage that might relax him and help him to open his mouth wider. Also encouraged f/u with the chiropractor. 2. No medical need to supplement or pump, could start this at about 1 month of age. 3. Baby may have a lip and/or tongue tie, but if nursing is comfortable and baby is gaining good weight there's no urgent need to see a pediatric dentist. As these ties may cause other problems in the future, POC may want to think about an evaluation or at least discuss with PCP. Handout on local dentists given. 4. Mom declined a one month weight check but has 2 week WCC next week. Also gave information on [place] [facility]. Meds Home Medications and Allergies Home Medications Medication Instructions Recorded Confirmed Type omega 2-vcx-wbb-fish oil 1,000 mg 1 cap PO QDAY 04/06/22 07/16/23 History (120 mg-180 mg) capsule (Fish Oil) prenat.vits,silvia,ldn-rnoz-lfilo 1 tab PO QDAY 04/06/22 07/16/23 History Lactobacillus rhamnosus GG 10 1 cap PO QDAY 02/07/23 07/16/23 History billion cell capsule (Culturelle) sulfacetamide sodium (acne) 10 % 1 applic topical ONCE 02/21/23 07/16/23 History lotion (suspension) ivermectin 1 % topical cream 1 applic topical QDAY 04/04/23 07/16/23 History (Soolantra) Allergies Allergy/AdvReac Type Severity Reaction Status Date / Time No Known Allergies Allergy Verified 07/16/23 08:24
== END 2023-07-10 13:50 | disposition home or self-care (01) ==
LOC: OB LAC 13:50
PROVIDERS: Visit Provider Advanced Practice Midwife
DX: Z39.1 Encounter for care and examination of lactating mother (principal)
CPT/HCPCS: 99211

== ENCOUNTER 2023-08-28 09:03 | Outpatient (RCR) | payer OTHER, SELFPAY | END 2023-12-26 23:59 | disposition home or self-care (01) | PROVIDERS: Visit Provider Advanced Practice Midwife | DX: N81.89 Other female genital prolapse (principal); Z51.89 Encounter for other specified aftercare | CPT/HCPCS: 97161; 97535 ==

== ENCOUNTER 2023-09-18 08:25 | Outpatient (CLI) | payer OTHER, SELFPAY ==
--- NOTE | 2023-09-18 09:23 | P.LACF_ITS ---
Follow-Up Note: Mom Date of visit Date of visit: 09/18/23 independent consultant: Trudi Mercedes Visit Code: Visit Patient's Information Allergies No Known Allergies Allergy (Verified 07/16/23 08:24) Delivery Information Delivery type: Vaginal Weeks Gestation: 41.0 Gestational Age: AGA Weight: 4.154 kg Baby's Information Baby's Age at Visit: 11 weeks Reason for Consult Reason for Consult: concern for thrush on nipples Current Frequency of Day Feedings: baby eats 7 - 8 times/24 hours Both Breasts: No (mom offers) Suck: strong Latch: fairly wide Length of Time: about 10 minutes total Pumping Pumping: Yes (a few times/day) Quantity Pumped: 3 - 6 oz total each time Supplementing EMB Supplement: Yes (when not with mom) Formula Supplement: No Baby Elimination Number of Wet Diapers a Day: almost every feeding Number of BM a Day: 1 - 2 times/day or every few days Onsite Pre-feed weight: 6.882 kg Post-Feed weight: 6.974 kg Milk Transferred (mL): 92 Assessments/Interventions Assessments/Interventions: Met with mom and her now 11 week old ex- term AGA baby. Mom reports baby was dx'd with thrush about three weeks ago and she noticed symptoms about two weeks ago. On 09/03 she was prescribed fluconazole BID and continued with Lotrimin topically after every feeding. With no improvement she contacted the [facility] on 09/16 and was instructed to stop the Lotrimin and start APNO topically after every feeding while continuing with the fluconazole. She reports there's really been no improvement yet. She states baby eats 7 - 8 times/24 hours. He's usually satisfied after one side and feedings last about 10 minutes. She states the latch isn't great, but he was seen by a pediatric dentist and doesn't have a lip or tongue tie. She's pumping after his morning feeding and when away from him and gets between 3 - 6 total each time. She denies any pain when pumping. Breasts WNL- symmetrical with rounded lower quadrants, intramammary distance is WNL. Nipples are everted and don't flatten or retract on compression. They are pinker than the areola and look a little irritated; a few very tiny fissures are visible. Nipples aren't scaly, shiny, or itchy. States she feels a shooting pain with let-down, but denies any burning pain or any pain radiating into her axilla or back. Also denies that she has pain apart from nursing or that it's worse at night. Does think she was getting a vaginal yeast infection at about the same time she noticed symptoms with nursing but this resolved when she started the fluconazole. No s/s of vasospasm. Baby's upper and lower frenulum appear WNL, he wouldn't suck on a finger. No s/s thrush on tongue, gums, or cheeks. Mom latched him on the right and it looked wide, but when looking at the lower lip he would tuck it in, then flange it out, then tuck in back in while nursing. This could be contributing to mom's discomfort. He nursed about 10 minutes, mom offered the other side but he was satisfied. He was weighed and had transferred 92 ml. Mom is using a 19 mm flange. After confirming her measurement this is an appropriate size for her. Plan: 1. Suggested she assess the latch and try teaching him to keep the lower lip flanged. This may improve comfort if he can break that habit. 2. Suggested she rinse her nipples with a salt water rinse after every nursing session. 3. Continue APNO ointment after every nursing session for two weeks. 4. Obviously complete the fluconazole. 5. Continue with probiotic and suggested she start Biotin 1,000 - 2,000 mcg/day. 6. Could restart Nystatin for baby if she's nervous she may reinfect him. 7. Continue washing bottles, pacifiers, pump parts in hot soapy water and sterilizing daily. 8. Will f/u by phone on 09/25/23. Meds Home Medications and Allergies Home Medications Medication Instructions Recorded Confirmed Type omega 5-lhi-rdm-fish oil 1,000 mg 1 cap PO QDAY 04/06/22 08/21/23 History (120 mg-180 mg) capsule (Fish Oil) prenat.vits,silvia,rxf-dwlu-fjzsq 1 tab PO QDAY 04/06/22 08/21/23 History Lactobacillus rhamnosus GG 10 1 cap PO QDAY 02/07/23 08/21/23 History billion cell capsule (Culturelle) sulfacetamide sodium (acne) 10 % 1 applic topical ONCE 02/21/23 08/21/23 History lotion (suspension) ivermectin 1 % topical cream 1 applic topical QDAY 04/04/23 08/21/23 History (Soolantra) Allergies Allergy/AdvReac Type Severity Reaction Status Date / Time No Known Allergies Allergy Verified 07/16/23 08:24
== END 2023-09-18 08:26 | disposition home or self-care (01) ==
PROVIDERS: Visit Provider Obstetrics & Gynecology
DX: Z39.1 Encounter for care and examination of lactating mother (principal)
CPT/HCPCS: 99211

== ENCOUNTER 2024-07-02 09:09 | Outpatient (CLI) | payer OTHER, SELFPAY | END 2024-07-02 09:10 | disposition home or self-care (01) | LOC: NFLDREF 07-06 10:53 | PROVIDERS: Visit Provider Physician Assistant | DX: Z13.220 Encounter for screening for lipoid disorders (principal); Z13.1 Encounter for screening for diabetes mellitus | CPT/HCPCS: 80061; 82947 ==

== ENCOUNTER 2025-07-09 09:02 | Outpatient (CLI) | payer OTHER, SELFPAY ==
[2025-07-10 22:50] LABS: HPV Source Cervix
[2025-07-13 10:44] LABS: Pap Test Digital Imaging Done
== END 2025-07-09 09:03 | disposition home or self-care (01) ==
PROVIDERS: Visit Provider Physician Assistant
DX: Z12.4 Encounter for screening for malignant neoplasm of cervix (principal)
CPT/HCPCS: 87624; 87625; 88141; 88142; 88175